=== PATIENT | female | born 1980 | race Caucasian/White ===

== ENCOUNTER 2017-11-26 16:38 | Emergency (ER) | payer OTHER ==
[~2017-11-26] VITALS: Ht 162.6 cm; Wt 84.8 kg
[~2017-11-26 16:38] MED LIST: MOTRIN800 MG PO; ULTRACET PO
== END 2017-11-26 20:50 | disposition home or self-care (01) ==
LOC: ER 16:38
DX: R55 Syncope and collapse (principal)